=== PATIENT | male | born 1975 | race Caucasian/White ===

== ENCOUNTER → 2018-05-06 14:36 | Outpatient (CLI) | payer OTHER, MEDICAID, SELFPAY ==
[2018-05-06 15:14] LABS: Hematocrit 45.4 % (41-53); Hemoglobin 15.7 g/dL (13.5-17.5); Mean Corpuscular HGB Conc 34.6 % (30-36); Mean Corpuscular Hemoglobin 31.6 PG (26-34); Mean Corpuscular Volume 91.4 fL (80-100); Platelet Count 249 X10^3/uL (150-400); Red Blood Cell Count 4.97 X10^6/uL (4.5-5.9); White Blood Cell Count 8.7 X10^3/uL (4.5-11.0)
[2018-05-06 15:37] LABS: Blood Urea Nitrogen 12 mg/dL (9-20); Calcium 9.2 mg/dL (8.4-10.2); Carbon Dioxide 28 mmol/L (22-32); Chloride 100 mmol/L (98-107); Creatine Kinase 224 U/L (55-170); Estimated Glomerular Filt Rate > 60.0 mL/min (>60); Glucose 105 mg/dL (70-100); HEMOLYSIS < 15 (0-50); Potassium 4.1 mmol/L (3.4-5.1); Sodium 137 mmol/L (137-145)
[2018-05-06 15:52] LABS: Troponin I < 0.012 ng/mL (0.01-0.034)
== END ==
PROVIDERS: PCP Internal Medicine; Visit Provider Internal Medicine
DX: R07.9 Chest pain, unspecified (principal)
CPT/HCPCS: 36415; 80048; 82550; 84484; 85027

== ENCOUNTER → 2018-05-25 13:32 | Outpatient (CLI) | payer OTHER, MEDICAID, SELFPAY ==
--- NOTE | 2018-05-25 14:37 | PM.TREADMILL ---
Cardiac Stress Test Report Referral & Results Date Patient Seen: 05/25/18 Time Patient Seen: 14:37 Requesting provider: Tobias Spangler Indication: Chest pain Rest ECG: Unremarkable Procedure Note: Today following both written and verbal informed consent, the patient was exercised according to a standard Shiv protocol. The patient exercised for a total of 6 min 44 sec achieving a maximum heart rate of 169. Patient's maximum systolic blood pressure was 182. This was an estimated 7.0 MET's. There are no ST-T segment changes Normal heart rate and blood pressure response to exercise Functional aerobic impairment rated 35% of the sedentary scale Normal oxygen saturation without wheezing Patient did experience significant chest tightness this seem to increase has activity increased and diminished as he rested Impression: No evidence of ischemia whatsoever. No evidence of chronic pulmonary disease Limited exercise capacity as above Please note: Actual ECG tracings can be found in the PACS system.
== END ==
PROVIDERS: PCP Internal Medicine; Visit Provider Internal Medicine
DX: R07.9 Chest pain, unspecified (principal)
CPT/HCPCS: 93016; 93017; 93018